=== PATIENT | male | born 1965 | race Caucasian/White ===

== ENCOUNTER → 2020-11-23 00:26 | Outpatient (CLI) | payer BC, SELFPAY ==
[2020-11-23 20:39] LABS: SARS-CoV-2 RNA PCR Negative
== END ==
PROVIDERS: PCP Internal Medicine; Visit Provider Internal Medicine Gastroenterology
DX: Z01.812 Encounter for preprocedural laboratory examination (principal); Z20.822 Contact with and (suspected) exposure to COVID-19
CPT/HCPCS: C9803; U0003; U0005

== ENCOUNTER 2020-11-26 02:15 | Day surgery (SDC) | payer BC, SELFPAY ==
[2020-11-14 14:32] VITALS: BMI 25.9
[2020-11-26 07:21] VITALS: BP 157/99; PULSE 86; RESP 20; O2SAT 97; BMI 25.9
[2020-11-26] MEDS: LACTATED RINGERS 1,000 ML 150 ML IV CONT (07:36)
--- NOTE | 2020-11-26 07:53 | WPDANESEPPF ---
Anes - Initial Pre Proc Eval Procedure: Operation Date: 11/26/20 08:30 Proposed Procedures p Colonoscopy - Benton Trevino MD Date/Time: 11/26/20 07:53 Surgeon: Benton Trevino MD Pre Op Diagnosis: Family Hx of Colon Cancer, Melena Patient Data Age: 55 Gender: M Height: 5 ft 10 in Weight: 82.1 kg Last Vital Signs Pulse 86 11/26/20 07:21 Resp 20 11/26/20 07:21 BP 157/99 H 11/26/20 07:21 Pulse Ox 97 11/26/20 07:21 Allergies Allergy/AdvReac Type Severity Reaction Status Date / Time No Known Allergies Allergy Verified 11/26/20 07:17 Home Medications Medication Instructions Recorded Confirmed Type omega-3 fatty acids 1,000 mg 1,000 mg PO DAILY 11/12/20 11/14/20 History capsule pyridoxine (vitamin B6) 100 mg 100 mg PO DAILY 11/12/20 11/14/20 History tablet glucosamine sulfate [Glucosamine] 500 mg PO DAILY 11/14/20 11/14/20 History prasterone (dhea) [DHEA] 25 mg PO DAILY 11/14/20 11/14/20 History sodium,potassium,mag sulfates See Rx Instructions .ROUTE 11/14/20 Rx [Suprep Bowel Prep Kit] .COMPLEX #1 ml vitamin B complex [B 1 tablet PO DAILY 11/14/20 11/14/20 History Complex-Vitamin B12] Patient hx anesthesia problems: none Family hx anesthesia problems: none PMFSH Past Medical History Medical History Hypogonadism Surgical History Surgical History History of shoulder surgery 2014 Family History Family History Sibling Carcinoma of colon Father Acute myocardial infarction Social History Social History Smoking status: Never smoker Alcohol intake: current Drinks per week: 12 Substance use: never Substance use type: does not use Living arrangements: with family Spiritual care concerns: No Anes - Eval Final PreProcedure Day of Procedure 11/26/20 07:53 Patient weight: normal Heart: regular rate and rhythm Lungs: clear to auscultation Airway: Mallampati scale class 1 Neurological: alert and oriented Last oral intake: >/= 8 hours ASA classification: I Emergent: no Anesthetic plan: proceed Anesthesia type and monitoring: general GIVS and standard monitoring Informed Consent: The patient's anesthetic plan and its attendant risks and benefits were discussed with the patient/family/POA. Questions were solicited and answers provided to the satisfaction of the patient/family/POA.
--- NOTE | 2020-11-26 07:59 | WPDGICN ---
Assessment and Plan Assessment and plan (1) Colon cancer screening: Code(s): Z12.11 - Encounter for screening for malignant neoplasm of colon Status: Acute Assessment and Plan: Colon cancer screening advised because of age 49 for this reason colonoscopy will be performed as well as is family history of colon cancer in brother at a young age. (2) Family history of colon cancer: Code(s): Z80.0 - Family history of malignant neoplasm of digestive organs Status: Acute Assessment and Plan: Brother developed colon cancer at age 32. A sister has had colon polyps. For this reason screening colonoscopy will be performed today is advised at 5 year intervals in the future. GI Consult Note Consult date/time: 11/26/20 07:59 HPI: Gerard Llanos is a 55 year old male Presents for screening colonoscopy. Patient states his current weight appetite bowel movements are normal. He has never had a prior colonoscopy. Family history is significant that his brother at age 32 from colon cancer. Patient states his sister has had colon polyps. Patient currently feels healthy and well as had no acknowledge GI problems. Review of Systems Review of Systems: All systems reviewed & are unremarkable except as noted in HPI and below PMFSH Past Medical History Medical History Hypogonadism Surgical History Surgical History History of shoulder surgery 2014 Family History Family History Sibling Carcinoma of colon Father Acute myocardial infarction Social History Social History Smoking status: Never smoker Alcohol intake: current Drinks per week: 12 Substance use: never Substance use type: does not use Living arrangements: with family Spiritual care concerns: No Meds Home Medications and Allergies Home Medications Medication Instructions Recorded Confirmed Type omega-3 fatty acids 1,000 mg 1,000 mg PO DAILY 11/12/20 11/14/20 History capsule pyridoxine (vitamin B6) 100 mg 100 mg PO DAILY 11/12/20 11/14/20 History tablet glucosamine sulfate [Glucosamine] 500 mg PO DAILY 11/14/20 11/14/20 History prasterone (dhea) [DHEA] 25 mg PO DAILY 11/14/20 11/14/20 History sodium,potassium,mag sulfates See Rx Instructions .ROUTE 11/14/20 Rx [Suprep Bowel Prep Kit] .COMPLEX #1 ml vitamin B complex [B 1 tablet PO DAILY 11/14/20 11/14/20 History Complex-Vitamin B12] Allergies Allergy/AdvReac Type Severity Reaction Status Date / Time No Known Allergies Allergy Verified 11/26/20 07:17 Vital Signs Vital Signs - 24 hr 11/26/20 07:21 Pulse Rate 86 Respiratory Rate 20 Blood Pressure 157/99 H Pulse Oximetry 97 Exam Narrative: Exam Narrative: Physical exam reveals patient to be alert. Vital signs stable. HEENT exam is unremarkable. Lungs are clear to auscultation and percussion. Heart is without murmur or extra sounds. Abdominal exam bowel sounds are present soft nontender with no organomegaly. Digital external rectal exam is normal.
[2020-11-26 08:55] VITALS: BP 142/90; PULSE 82; RESP 20; O2SAT 97
[2020-11-26 09:05] VITALS: BP 138/79; PULSE 82; RESP 20; O2SAT 99
[2020-11-26 09:15] VITALS: BP 126/91; PULSE 76; RESP 15; O2SAT 100
== END 2020-11-26 09:32 | disposition home or self-care (01) ==
PROVIDERS: PCP Internal Medicine; Visit Provider Internal Medicine Gastroenterology
PROC: 0DJD8ZZ Inspection of Lower Intestinal Tract, Via Natural or Artificial Opening Endoscopic (ICD-10-PCS; CPT 45378; principal; 2020-11-26 08:30)
DX: Z12.11 Encounter for screening for malignant neoplasm of colon (principal); K63.5 Polyp of colon; Z80.0 Family history of malignant neoplasm of digestive organs; K57.30 Diverticulosis of large intestine without perforation or abscess without bleeding; K64.8 Other hemorrhoids
CPT/HCPCS: 45385; 88305; J2704; J7120

== ENCOUNTER 2023-01-25 09:17 | Inpatient (IN) | payer BC, SELFPAY ==
[2023-01-25] VITALS (12 sets, daily range): BP systolic 104–130; BP diastolic 69–88; PULSE 65–145; RESP 16–20; TEMP 36.3–36.8; O2SAT 97–100; BMI 26.4
--- NOTE | 2023-01-25 | ECHO_ITS ---
Patient Info Name: Gerard Llanos Age: 58 years : 1965 Gender: Male Ht: 70 in Wt: 183 lbs BSA: 2.04 m2 HR: 69 bpm BP: 125 / 88 mmHg Technical Quality: Good Exam Date: 01/25/2023 2:19 PM Exam Location: [facility] Patient Status: Inpatient Admit Date: 01/25/2023 Staff Ordering Physician: Nic Grace DO Sales Analytics Manager: David Ziegler RDCS, RT Attending Provider: Nic Grace DO Referring Physician: Sanjay APONTE; Exam Type: CA echo doppler color flow Study Info Indications I48.0 - Paroxysmal atrial fibrillation Complete two-dimensional, color flow and Doppler transthoracic echocardiogram is performed. Strain analysis performed. Summary 1. Complete two-dimensional, color flow and Doppler transthoracic echocardiogram is performed. 2. Left ventricular chamber dimension is normal. 3. Left ventricular systolic function is normal, estimated at 55-60%. 4. The left ventricular diastolic function is grade I diastolic dysfunction. 5. E/e' 5 is not elevated. 6. Global longitudinal strain is abnormal at -12.8%. 7. There is trace mitral valve regurgitation. 8. There is trace tricuspid valve regurgitation. Left Ventricle E/e' 5 is not elevated. Global longitudinal strain is abnormal at -12.8%. Left ventricular chamber dimension is normal. Left ventricular systolic function is normal, estimated at 55-60%. The left ventricular diastolic function is grade I diastolic dysfunction. Right Ventricle Right ventricular systolic function is normal and with normal TAPSE 1.8 cm. Right ventricular chamber dimension is normal. Left Atria Left atrial chamber dimension is normal. Right Atria Right atrial chamber dimension is normal. Aortic Valve The aortic valve is trileaflet. There is no aortic valve stenosis. There is no aortic valve regurgitation. Pulmonic Valve There is no pulmonic regurgitation. Mitral Valve There is no mitral valve stenosis. There is trace mitral valve regurgitation. Tricuspid Valve There is trace tricuspid valve regurgitation. RVSP is not calculated due to an inadequate TR jet. Pericardium/Pleural There is no pericardial effusion. Inferior Vena Cava Normal inferior vena cava with >50% collapse upon inspiration consistent with normal right atrial pressure, 5 mmHg. Aorta The aortic root size at the sinus of Valsalva is normal. Left Ventricular Outflow Tract Name Value Normal LVOT 2D LVOT Diameter 2.2 cm LVOT Doppler LVOT Peak Gradient 2 mmHg LVOT Mean Gradient 1 mmHg LVOT VTI 14 cm LVOT VTI/AV VTI Ratio 0.8 LVOT Stroke Volume 56 ml LVOT CO 3.9 l/min LVOT CI 1.9 l/min/m2 Mitral Valve Name Value Normal MV Doppler
--- NOTE | 2023-01-25 09:47 | ADMGEN ---
This patient, Gerard Llanos, was admitted to IMU Room 210-01. Patient/family oriented to hospital policies and general routines including ID bracelet, bed and alarms, visiting hours, pain management, procedures, bathroom and other care routines, personal items, smoking policy, room service/diet, and visiting hours. Information on how to activate the Rapid Response Team has been discussed. Patient/Family are encouraged to report perceived risks to care and to ask questions if they do not understand what they are told or what they should do.
[2023-01-25 11:11] LABS: Basophils Percent Auto 0.4 % (0.2-1.2); Eosinophils Absolute Auto 0.1 K/mm3 (0-0.3); Hemoglobin 17.8 g/dL (14.0-18.0); Immature Granulocyte Absolute 0.02 K/mm3 (0.00-0.031); Immature Granulocyte Percent A 0.3 % (0-0.5); Lymphocytes Absolute Auto 1.46 K/mm3 (0.9-3.2); Lymphocytes Percent Auto 20.6 % (18.3-44.2); Mean Corpuscular HGB Conc 34.2 g/dl (32-36); Mean Corpuscular Hemoglobin 32.6 pg (26-34); Mean Corpuscular Volume 95.2 fl (80-100); Mean Platelet Volume 9.6 fl (7.4-10.4); Monocytes Absolute Auto 0.9 K/mm3 (0.1-0.6); Neutrophils Absolute Auto 4.7 K/mm3 (1.3-6.7); Neutrophils Percent Auto 65.7 % (45.5-73.1); Platelet Count Result 244 k/mm3 (150-375); Red Blood Count 5.46 M/mm3 (4.6-6.20); Red Cell Distribution Width 13.8 % (11.5-14.5); White Blood Count 7.1 K/mm3 (4.5-10.0)
[2023-01-25 11:22] LABS: Alanine Aminotransferase 43 U/L (6-50); Albumin Level 4.6 g/dL (3.5-5.1); Alkaline Phosphatase 55 U/L (38-126); Anion Gap 7 mmol/L (8-16); Aspartate Amino Transferase 51 U/L (17-59); Bilirubin,Total 0.9 mg/dL (0.2-1.3); Blood Urea Nitrogen 23 mg/dL (9-20); Calcium 9.1 mg/dL (8.4-10.2); Carbon Dioxide 27 mmol/L (22-30); Chloride 102 mmol/L (98-107); Estimated Glomerular Filt Rate > 60; Glucose 107 mg/dL (65-110); Potassium 4.5 mmol/L (3.4-5.0); Sodium 136 mmol/L (137-145)
--- NOTE | 2023-01-25 11:57 | ECG_ITS ---
Measurements Intervals [place] Rate: 112 P: [place]: 0 QRS: 30 QRSD: 86 T: 11 QT: 301 QTc: 412 Interpretive Statements ATRIAL FIBRILLATION WITH RAPID VENTRICULAR RESPONSE ABNORMAL ECG NO PREVIOUS ECG AVAILABLE FOR COMPARISON Electronically Signed On 01-25-2023 17:01:22 CDT by Leon Weber M.D.
[2023-01-25] MEDS: SOTALOL HCL 80 MG TABLET PO ×2 (12:38→22:39)
[2023-01-25] MEDS: dilTIAZem HCL 30 MG TABLET PO (12:39)
--- NOTE | 2023-01-25 12:50 | PM.IMHP ---
H&P: HPI History of Present Illness Date/Time: 01/25/23 12:50 Chief Complaint: Palpitations Narrative: 58 yr old man is a direct admit for Sotalol loading for atrial fibrillation. He has a history of PAF, hypertension. Reports he felt palpitations for over a year now. He runs marathons, however when he feels palpitations he does not feel good due to fatigue, LOVE. Admits to drinking a handful of beers on weekends.? Denies daytime sleepiness. Denies chest pain, orthopnea, PND, edema, dizziness. Cardiovascular Procedures Electrophysiology:: 01/19/23 EKG: Sinus rhythm at 65 bpm. 12/04/22 27 days event monitor: Sinus rhythm, HR range 47-180 bpm; average 77 bpm; <1% PAC, 4,100 episodes of atrial fibrillation with burden of 3% and HR range 47-180 bpm with longest at 1 hr and 13 minutes, 1% PVC's. Review of Systems Review of Systems: All systems reviewed & are unremarkable except as noted in HPI and below Constitutional: Constitutional: Reports as per HPI, Denies chills, Reports fatigue and Denies fever(s) Cardiovascular: Cardiovascular: Reports as per HPI, Denies chest pain, Reports rapid heart rate and Reports irregular heart rhythm Respiratory: Respiratory: Reports as per HPI and Denies dyspnea Gastrointestinal: Gastrointestinal: Reports as per HPI and Denies abdominal pain Genitourinary: Genitourinary: Reports as per HPI and Denies dysuria Musculoskeletal: Musculoskeletal: Reports as per HPI Neurologic: Reports as per HPI, Denies dizziness and Denies syncope [facility] Past Medical History Medical History (Updated 01/19/23 @ 10:30 by Nic Grace DO) Atrial fibrillation Broken ribs 10/2020 Hypogonadism Surgical History Surgical History History of shoulder surgery 2014 Family History Family History Sibling Carcinoma of colon Father Acute myocardial infarction Social History Social History (Updated 12/01/22 @ 11:21 by Brie Chiu CMA) Smoking status: Never smoker Second hand tobacco smoke exposure: No Alcohol intake: current Drinks per week: 20 Substance use: never Substance use type: does not use Lack of Transportation: No Lack of Food: Never True Current Housing: I Have Housing Concerned About Future Housing: No Difficulty Paying Gas/Electric Bills: No Difficulty Paying for Meds: No Currently Unemployed: No Education: High School Diploma/GED Difficulty w/ Childcare or Family Care: No Living arrangements: with family Spiritual care concerns: No Meds Home Medications and Allergies Home Medications Medication Instructions Recorded Confirmed Type pyridoxine (vitamin B6) 100 mg 100 mg PO DAILY 11/12/20 01/25/23 History tablet vitamin B complex (B 1 tablet PO DAILY 11/14/20 01/25/23 History Complex-Vitamin B12 tablet) lisinopril 20 mg tablet 20 mg PO DAILY #90 tabs 09/07/22 01/25/23 Rx aspirin 325 mg tablet,delayed 325 mg PO DAILY 01/19/23 01/25/23 History release ferrous sulfate 325 mg (65 mg 325 mg PO DAILY 01/19/23 01/25/23 History iron) tablet (FeroSul) loratadine 5 mg-pseudoephedrine ER 1 tablet PO Q12H 01/19/23 01/25/23 History 120 mg tablet,extended release,12hr (Claritin-D 12 Hour) naproxen sodium 220 mg capsule 220 mg PO BID PRN Pain 01/19/23 01/25/23 History (Aleve) zinc acetate 50 mg (zinc) capsule 50 mg PO DAILY 01/19/23 01/25/23 History (Galzin) chorionic gonadotropin, human 25 unit IM 2XW 01/25/23 01/25/23 History 10,000 unit IM powder for solution sermorelin acetate diagnostic 50 30 mcg IV DIRECTED 01/25/23 01/25/23 History mcg intravenous solution Allergies Allergy/AdvReac Type Severity Reaction Status Date / Time No Known Allergies Allergy Verified 01/19/23 10:59 Vital Signs Vital Signs - 24 hr 01/25/23 10:08 01/25/23 10:00 01/25/23 10:45 Temperature 98.0 F Pulse Rate 128 H 145
--- NOTE | 2023-01-25 14:45 | ECG_ITS ---
Measurements Intervals [place] Rate: 68 P: 57 [place]: 173 QRS: 19 QRSD: 106 T: 41 QT: 382 QTc: 407 Interpretive Statements SINUS RHYTHM CANNOT RULE SEPTAL INFARCT, AGE INDETERMINATE BORDERLINE ECG COMPARED TO ECG 01/25/2023 10:43:13 SINUS RHYTHM NOW PRESENT Electronically Signed On 01-25-2023 17:07:51 CDT by Leon Weber M.D.
[2023-01-26] VITALS (20 sets, daily range): BP systolic 110–133; BP diastolic 67–82; PULSE 53–88; RESP 18–20; TEMP 36.2–36.3; O2SAT 97–100
--- NOTE | 2023-01-26 00:15 | ECG_ITS ---
Measurements Intervals [place] Rate: 59 P: 72 [place]: 184 QRS: 67 QRSD: 102 T: 9 QT: 415 QTc: 412 Interpretive Statements SINUS BRADYCARDIA BASELINE ARTIFACT CANNOT RULE OUT SEPTAL INFARCT, AGE INDETERMINATE BORDERLINE ECG COMPARED TO ECG 01/25/2023 14:52:48 HEART RATE HAS DECREASED Electronically Signed On 01-26-2023 16:12:46 CDT by Leon Weber M.D.
--- NOTE | 2023-01-26 08:24 | PM.PNCARD ---
Progress Note: A&P Assessment and Plan (1) PAF (paroxysmal atrial fibrillation): Code(s): I48.0 - Paroxysmal atrial fibrillation Status: Acute Assessment and Plan: Very frequent bouts. Discuss results of event monitor. [id number] 1. On Aspirin EC 325 mg daily. 01/25/23 Echo: EF 55-60%, grade I diastolic dysfunction (E/e' 5), trace MR/TR. Started 01/25/23 Sotalol loading 80 mg every 12 hours. Check EKG 1-2 hrs post each dose to check QT interval. Anticipate 1 more night stay. (2) Essential (primary) hypertension: Code(s): I10 - Essential (primary) hypertension Status: Acute Assessment and Plan: Stable. Subjective Date/time seen: 01/26/23 08:24 Interval history: Denies chest pain or sob. Exam Const: General: cooperative, healthy appearing and comfortable Orientation/consciousness: oriented to person, oriented to place and oriented to time Resp: Auscultation: clear to auscultation bilaterally, no crackles, no rales, no rhonchi and no wheezes Cardio: Rate: regular rate Rhythm: regular rhythm Heart sounds: no murmurs Peripheral pulses: dorsalis pedis present Neuro: General: oriented to person, oriented to place and oriented to time Extrem: Right lower extremity: no edema Left lower extremity: no edema Objective Data Vital Signs Vital Signs: Vital Signs - 24 hr 01/25/23 10:08 01/25/23 10:00 01/25/23 10:45 Temperature 98.0 F Pulse Rate 128 H 145 H Respiratory Rate 16 Blood Pressure 128/82 Pulse Oximetry 100 Oxygen Delivery Room Air 01/25/23 12:38 01/25/23 12:00 01/25/23 12:00 Temperature 97.7 F Pulse Rate 141 H 138 H 125 H Respiratory Rate 16 Blood Pressure 125/88 Pulse Oximetry 100 Oxygen Delivery 01/25/23 14:00 01/25/23 16:00 01/25/23 16:00 Temperature Pulse Rate 70 65 Respiratory Rate Blood Pressure Pulse Oximetry Oxygen Delivery Room Air 01/25/23 16:00 01/25/23 18:00 01/25/23 14:20 Temperature 98.3 F Pulse Rate 68 72 83 Respiratory Rate 16 Blood Pressure 104/69 124/81 Pulse Oximetry 98 Oxygen Delivery 01/25/23 20:34 01/25/23 20:10 01/25/23 22:00 Temperature 97.4 F L Pulse Rate 68 65 Respiratory Rate 20 Blood Pressure 130/76 Pulse Oximetry 97 Oxygen Delivery Room Air 01/25/23 22:39 01/26/23 00:00 01/26/23 00:28 Temperature 97.3 F L Pulse Rate 68 62 Respiratory Rate 20 Blood Pressure 128/82 Pulse Oximetry 99 Oxygen Delivery Room Air 01/26/23 00:00 01/25/23 20:00 01/26/23 04:24 Temperature 97.3 F L Pulse Rate 62 68 53 L Respiratory Rate 20 Blood Pressure 133/79 Pulse Oximetry 99 Oxygen Delivery 01/26/23 04:00 01/26/23 02:00 01/26/23 04:00 Temperature Pulse Rate 56 L 54 L Respiratory Rate Blood Pressure Pulse Oximetry Oxygen Delivery Room Air 01/26/23 06:00 01/26/23 08:23 Temperature 97.1 F L Pulse Rate 53 L 59 L Respiratory Rate 20 Blood Pressure 125/79 Pulse Oximetry 100 Oxygen Delivery Intake/Output Intake/Output: Intake & Output 01/23/23 01/24/23 01/25/23 01/26/23 23:59 23:59 23:59 23:59 Intake Total 490 350 Balance 490 350 Meds/Results Medications: Active Medications Generic Name Dose Route Start Last Admin Trade Name Freq PRN Reason Stop Dose Admin Aspirin 325 mg 01/26/23 09:00 Aspirin 325 Mg Enteric Tablet PO DAILY [facility] Ferrous Sulfate 324 mg 01/26/23 09:00 Ferrous Sulfate 324 Mg Tablet PO DAILY [facility] Lisinopril 20 mg 01/26/23 09:00 Lisinopril 20 Mg Tablet PO DAILY [place] Naproxen 220 mg 01/25/23 11:57 Naproxen Sodium 220 Mg Tablet PO BID PRN Pain Perflutren Lipid Microsphere 0 ml 01/25/23 12:54 Perflutren Lipid Microspheres 1.5 Ml Vial Diluted To 10 Ml Total Volume IV PUSH 01/27/23 12:54 ONCE PRN adequate visualization Protocol Pyridoxine HCl 100 mg 01/25/23 14:00 01/25/23 12:40 Pyridox
[2023-01-26] MEDS: PYRIDOXINE HCL 50 MG TABLET 100 MG PO (08:35)
[2023-01-26] MEDS: ASPIRIN 325 MG ENTERIC TABLET PO (08:36)
[2023-01-26] MEDS: VITAMIN B COMPLEX CAPSULE 1 CAP PO (08:36)
[2023-01-26] MEDS: SOTALOL HCL 80 MG TABLET PO ×2 (08:37→20:22)
[2023-01-26] MEDS: FERROUS SULFATE 324 MG TABLET PO (08:37)
[2023-01-26] MEDS: lisinopriL 20 MG TABLET PO (08:38)
--- NOTE | 2023-01-26 10:20 | ECG_ITS ---
Measurements Intervals [place] Rate: 56 P: 62 [place]: 186 QRS: 51 QRSD: 97 T: 49 QT: 409 QTc: 397 Interpretive Statements SINUS BRADYCARDIA CANNOT RULE OUT SEPTAL INFARCT, AGE INDETERMINATE BORDERLINE ECG COMPARED TO ECG 01/26/2023 00:14:48 NO SIGNIFICANT CHANGES Electronically Signed On 01-26-2023 16:23:34 CDT by Leon Weber M.D.
--- NOTE | 2023-01-26 22:30 | ECG_ITS ---
Measurements Intervals [place] Rate: 55 P: 61 [place]: 189 QRS: 28 QRSD: 90 T: 33 QT: 435 QTc: 416 Interpretive Statements SINUS BRADYCARDIA COMPARED TO ECG 01/26/2023 10:21:40 NO SIGNIFICANT CHANGES Electronically Signed On 01-27-2023 18:00:28 CDT by Riley Benjamni M.D.
[2023-01-27] VITALS (9 sets, daily range): BP systolic 111–129; BP diastolic 71–79; PULSE 53–65; RESP 20; TEMP 35.8–36.4; O2SAT 99–100
[2023-01-27] MEDS: VITAMIN B COMPLEX CAPSULE 1 CAP PO (07:35)
[2023-01-27] MEDS: PYRIDOXINE HCL 50 MG TABLET 100 MG PO (07:35)
[2023-01-27] MEDS: ASPIRIN 325 MG ENTERIC TABLET PO (07:35)
[2023-01-27] MEDS: FERROUS SULFATE 324 MG TABLET PO (07:36)
[2023-01-27] MEDS: lisinopriL 20 MG TABLET PO (07:36)
[2023-01-27] MEDS: SOTALOL HCL 80 MG TABLET PO (07:36)
--- NOTE | 2023-01-27 07:52 | PM.DS ---
DS: Admitting Diagnosis Discharge Date 01/27/23 Admitting Diagnosis Sotalol loading for symptomatic paroxysmal atrial fibrillation DS: Discharge Diagnosis Discharge Diagnosis Plan Sotalol loading for symptomatic paroxysmal atrial fibrillation DS: Summary Hospital Course Reason for hospitalization: Symptomatic atrial fibrillation Hospital Course: 58 yr old man directly admitted for Sotalol loading on 01/25/23. He tolerated medication well with normal QT interval. Initially he was in atrial fibrillation and after first dose he cardioverted and maintained sinus rhythm. Denies any symptoms of chest pain, sob, edema, dizziness. Time spent discussing smoking cessation with patient: more than 10 minutes Status at Discharge Functional status at discharge: independent ambulation Overall status at discharge: patient is not back to baseline Time Spent with Patient Time attestation: Total time spent providing and/or coordinating discharge services: Time spent: Greater than 30 minutes Exam Const: General: cooperative, healthy appearing and comfortable Orientation/consciousness: oriented to person, oriented to place and oriented to time Resp: Auscultation: clear to auscultation bilaterally, no crackles, no rales, no rhonchi and no wheezes Cardio: Rate: regular rate Rhythm: regular rhythm Heart sounds: no murmurs Peripheral pulses: dorsalis pedis present Neuro: General: oriented to person, oriented to place and oriented to time Extrem: Right lower extremity: no edema Left lower extremity: no edema Discharge Plan Discharge Attending physician on discharge: Nic Grace Discharging Clinician: Nic Grace Patient Disposition: Home, Self-Care Activity: as tolerated Diet: low sodium Patient Instructions: Antibiotic Form, Sotalol (By mouth) Stand Alone Forms: General Discharge Information Follow-up/Referrals: Nic Grace, [Physician] - (F/U 1-2 weeks) Discharge Medications: New sotalol 80 mg Tablet 80 mg PO Q12HR Qty: 60 5RF Continued pyridoxine (vitamin B6) 100 mg tablet 100 mg PO DAILY Galzin 50 mg (zinc) capsule 50 mg PO DAILY ferrous sulfate [FeroSul] 325 mg (65 mg iron) tablet 325 mg PO DAILY Claritin-D 12 Hour 5-120 mg tablet extended release 12 hr 1 tablet PO Q12H naproxen sodium [Aleve] 220 mg capsule 220 mg PO BID PRN (Reason: Pain) aspirin 325 mg tablet,delayed release (DR/EC) 325 mg PO DAILY sermorelin acetate diagnostic 50 mcg Recon Soln 30 mcg IV DIRECTED Rx Instructions: Pt takes subcutaneous injection 30 days on, 30 days off. Has been off for approximatley 1 weeek. chorionic gonadotropin, human [HCG] 10,000 unit Recon Soln 25 unit IM 2XW Label Comments: Patient takes 25 units bi weekly, last dose was last week vitamin B complex [B Complex-Vitamin B12] Tablet 1 tablet PO DAILY lisinopril 20 mg tablet 20 mg PO DAILY Qty: 90 3RF Date of admission: 01/25/23 09:17 Primary Care Provider: Meño Hart Admitting Provider: Nic Grace Attending physician on admission: Nic Grace Condition: Stable [facility] Discharge Billing Hospital Discharge Hospital Discharge: 64103 Hosp D/C >30 Min
== END 2023-01-27 08:03 | disposition home or self-care (01) | DRG 310 ==
PROVIDERS: Admitting Provider Internal Medicine Cardiovascular Disease; PCP Internal Medicine; Visit Provider Internal Medicine Cardiovascular Disease
DX: I48.0 Paroxysmal atrial fibrillation (principal); I10 Essential (primary) hypertension; Z79.82 Long term (current) use of aspirin; Z80.0 Family history of malignant neoplasm of digestive organs
CPT/HCPCS: 36415; 80053; 83735; 85025; 93005; 93306; A9270